=== PATIENT | male | born 1980 | race Two or more races ===

== ENCOUNTER 2018-12-23 04:14 | Emergency (ER) | payer BC, OTHER ==
[2018-12-23 04:23] VITALS: BP 133/94
[2018-12-23] MEDS ORDERED: Prochlorperazine 10 MG/2 ML SDV IVPUSH ONE (04:33)
[2018-12-23] MEDS ORDERED: Ketorolac 30 MG/ML SDV IVPUSH ONE (04:33)
[2018-12-23] MEDS ORDERED: diphenhydrAMINE 50 MG/ML SDV IVPUSH ONE (04:34)
[2018-12-23] MEDS: Sodium Chloride 0.9% 10 ML Syringe FLUSH PRN ×3 (04:41→04:44)
--- NOTE | 2018-12-23 04:44 | EDM.PDOC ---
ED HPI GENERAL MEDICAL PROBLEM - General Chief Complaint: Headache Stated Complaint: HEADACHE/MIGRAINE LEFT SIDE BLURRY VISON Time Seen by Provider: 12/23/18 04:29 Source of Information: Reports: Patient History Limitations: Reports: No Limitations - History of Present Illness INITIAL COMMENTS - FREE TEXT/NARRATIVE: The patient presents with a headache. On Sunday he woke up with a frontal headache. Now the pain is to the left side down his neck. He has no history of migraines and he rarely gets headaches. He has some dizziness at times mostly when he bends over. He has blurry vision to the left visual field at times. He has no fever, chills, cough, congestion, runny nose, nausea or vomiting. He denies numbness or weakness. Onset: Gradual Duration: Day(s): (3) Location: Reports: Head Quality: Reports: Sharp Severity: Severe Improves with: Reports: None Worsens with: Reports: None Associated Symptoms: Reports: Headaches. Denies: Chest Pain, Cough, Fever/ Chills, Nausea/Vomiting, Shortness of Breath Left Head Pain Score (Numeric/FACES): 7 - Related Data Allergies Allergy/AdvReac Type Severity Reaction Status Date / Time No Known Allergies Allergy Verified 12/23/18 04:23 Home Meds: Home Meds . [No Known Home Meds] 12/23/18 [History] Past Medical History Other Musculoskeletal History: "Restless legs" Psychiatric History: Reports: Depression - Past Surgical History HEENT Surgical History: Reports: Tonsillectomy Musculoskeletal Surgical History: Reports: Other (See Below) Other Musculoskeletal Surgeries/Procedures:: ankle surgery Social & Family History - Tobacco Use Smoking Status *Q: Never Smoker - Caffeine Use Caffeine Use: Reports: None - Recreational Drug Use Recreational Drug Use: No ED ROS GENERAL - Review of Systems Review Of Systems: See Below Constitutional: Reports: No Symptoms HEENT: Reports: No Symptoms Respiratory: Reports: No Symptoms Cardiovascular: Reports: No Symptoms Endocrine: Reports: No Symptoms GI/Abdominal: Reports: No Symptoms : Reports: No Symptoms Musculoskeletal: Reports: No Symptoms Neurological: Reports: Dizziness, Headache. Denies: Numbness, Weakness - Physical Exam Exam: See Below Exam Limited By: No Limitations General Appearance: Alert, No Apparent Distress Eye Exam: Bilateral Eye: EOMI Ears: Normal External Exam Nose: Normal Inspection Head Exam: Atraumatic, Normocephalic Neck: Normal Inspection, Supple, Non-Tender Respiratory/Chest: No Respiratory Distress, Lungs Clear, Normal Breath Sounds Cardiovascular: Regular Rate, Rhythm, No Edema, No Murmur GI/Abdominal: Soft, Non-Tender, No Organomegaly, No Mass Neuro Exam (Abbreviated): Alert, Oriented, No Motor/Sensory Deficits Course - Vital Signs Last Recorded V/S: Last Vital Signs Temp 97.6 F 12/23/18 04:19 Pulse 80 12/23/18 04:19 Resp 20 12/23/18 04:19 BP 133/94 H 12/23/18 04:19 Pulse Ox 98 12/23/18 04:19 - Orders/Labs/Meds Orders: Active Orders 24 hr Category Date Time Status Peripheral IV Care [RC] . DIRECTED Care 12/23/18 04:33 Active Head wo Cont [CT] Stat Exams 12/23/18 04:34 Taken Sodium Chloride 0.9% [Saline Flush] Med 12/23/18 04:33 Active 10 ml FLUSH ASDIRECTED PRN Peripheral IV Insertion Adult [OM.PC] Routine Oth 12/23/18 04:33 Ordered Medication Orders Sodium Chloride (Saline Flush) 10 ml FLUSH ASDIRECTED PRN PRN Reason: Keep Vein Open Last Admin: 12/23/18 04:44 Dose: 10 ml Admin: 12/23/18 04:42 Dose: 10 ml Admin: 12/23/18 04:41 Dose: 10 ml Meds: Medications Generic Name Dose Route Start Last Admin Trade Name Freq PRN Reason Stop Dose Admin Sodium Chloride 10 ml 12/23/18 04:33 12/23/18 04:44 Saline Flush FLUSH 10 ml ASDIRECTED PRN Administration Keep Vein Open Discontinued Medications Generic Name Dose Route Start Last Admin Trade Name Freq PRN Reason Stop Dose Admin Diphenhydramine HCl 50 mg 12/23/18 04:34 12/23/18 04:40 Benadryl IVPUSH 12/23/18 04:35 50 mg ONETIME ONE Administration Ketorolac Tromethamine 30 mg 12/23/18 04:33 12/23/18 04:41 Toradol IVPUSH 12/23/18 04:34 30 mg ONETIME ONE Administration Prochlorperazine Edisylate 10 mg 12/23/18 04:33 12/23/18 04:43 Compazine IVPUSH 12/23/18 04:34 10 mg ONETIME ONE Administration - Re-Assessments/Exams Free Text/Narrative Re-Assessment/Exam: 12/23/18 04:[address] of his head, IV saline lock, compazine 10mg IV, toradol 30mg IV and benadryl 50mg IV. 12/23/18 06:[address] looks good. He was able to sleep. He feels better. The headache is not completely gone but much better. He got up to go to the bathroom and he did well. I will discharge him home. Departure - Departure Time of Disposition: 06:25 Disposition: Home, Self-Care 01 Condition: Good Clinical Impression: Headache Qualifiers: Headache type: unspecified Headache chronicity pattern: unspecified pattern Intractability: not intractable Qualified Code(s): R51 - Headache - Discharge Information *PRESCRIPTION DRUG MONITORING PROGRAM REVIEWED*: Not Applicable *COPY OF PRESCRIPTION DRUG MONITORING REPORT IN PATIENT AIYANA: Not Applicable Referrals: PCP,None [Primary Care Provider] - Pari Baldwin PA-C [Physician [employer]otive Engineering Teacher] - Forms: ED Department Discharge, ED Return to Work/School Form Additional Instructions: Take motrin or tylenol for the pain. Go home and get some rest. Please return if you are worse. - My Orders Last 24 Hours: My Active Orders 12/23/18 04:33 Peripheral IV Care [RC] . DIRECTED Sodium Chloride 0.9% [Saline Flush] 10 ml FLUSH ASDIRECTED PRN Peripheral IV Insertion Adult [OM.PC] Routine 12/23/18 04:34 Head wo Cont [CT] Stat - Assessment/Plan Last 24 Hours: My Active Orders 12/23/18 04:33 Peripheral IV Care [RC] . DIRECTED Sodium Chloride 0.9% [Saline Flush] 10 ml FLUSH ASDIRECTED PRN Peripheral IV Insertion Adult [OM.PC] Routine 12/23/18 04:34 Head wo Cont [CT] Stat
--- NOTE | 2018-12-23 07:13 | CT ---
Head CT Technique: Multiple axial sections through the brain were obtained. Intravenous contrast was not utilized. Comparison: No prior intracranial imaging. Findings: Ventricles along with basal cisterns and sulci over the convexities are within normal limits for the patient's age. No abnormal parenchymal densities are seen. No evidence of intracranial hemorrhage. No midline shift or mass effect is seen. Bone window settings were reviewed which show no acute calvarial abnormality. Visualized sinuses are clear. Impression: 1. Nothing acute is seen on noncontrast head CT. Diagnostic code #1 I agree with preliminary report from ad, finalized on 12/23/18, 6:15 AM Central Time
== END 2018-12-23 06:51 | disposition home or self-care (01) ==
LOC: JD.ED 04:14
DX: R51 Headache (principal); Z98.890 Other specified postprocedural states
CPT/HCPCS: 70450; 96374; 96375; 99284; J0780; J1200; J1885

== ENCOUNTER 2023-06-25 05:59 | Emergency (ER) | payer OTHER ==
[2023-06-25] MEDS ORDERED: Sodium Chloride 0.9% 10 ML Syringe FLUSH PRN (06:27)
[2023-06-25] MEDS ORDERED: HYDROmorphone 1 MG/ML Syringe IVPUSH ONE (06:28)
[2023-06-25 06:37] LABS: BASOPHILS PERCENT AUTO 0.4 % (0.0-1.0); EOSINOPHILS ABSOLUTE AUTO 0.2 K/mm3 (0.0-0.4); EOSINOPHILS PERCENT AUTO 1.7 % (0.0-6.0); HEMATOCRIT 43.4 % (42.0-52.0); HEMOGLOBIN 15.1 gm/dl (14.0-18.0); IMMATURE GRAN ABSOLUTE AUTO 0.03 K/mm3 (0.00-0.05); IMMATURE GRAN PERCENT AUTO 0.3 % (0.0-0.4); LYMPHOCYTES ABSOLUTE AUTO 1.6 K/mm3 (1.0-4.8); LYMPHOCYTES PERCENT AUTO 15.5 % (24.0-44.0); MEAN CORPUSCULAR HEMOGLOBIN 30.7 pg (28.0-32.0); MEAN CORPUSCULAR HGB CONC 34.8 g/dl (32.0-36.0); MEAN CORPUSCULAR VOLUME 88.2 fl (83.0-99.0); MEAN PLATELET VOLUME 9.1 fl (9.4-12.4); MONOCYTES PERCENT AUTO 9.7 % (0.0-8.0); NEUTROPHILS ABSOLUTE AUTO 7.3 K/mm3 (1.8-7.7); NEUTROPHILS PERCENT AUTO 72.4 % (41.0-71.0); PLATELET COUNT,PLT 336 K/mm3 (150-400); RED BLOOD CELL COUNT 4.92 M/mm3 (4.52-5.90); WHITE BLOOD CELL COUNT,WBC 10.03 K/mm3 (3.9-11.3)
[2023-06-25] MEDS ORDERED: Iopamidol 755 Mg/ML 100 ML Bottle IVPUSH ONE (06:43)
[2023-06-25] MEDS ORDERED: Sodium Chloride 0.9% 100 ML IV SCH (06:45)
[2023-06-25 06:52] LABS: A/G RATIO 0.9 (1-2); ALANINE AMINOTRANSFERASE,ALT 25 U/L (16-63); ALBUMIN 3.6 g/dl (3.4-5.0); ALKALINE PHOSPHATASE 108 U/L (46-116); ANION GAP 13.6 (5-15); ASPARTATE AMNIOTRANSFERASE,AST 14 U/L (15-37); BILIRUBIN TOTAL 1.1 mg/dL (0.2-1.0); BLOOD UREA NITROGEN,BUN 11 mg/dL (7-18); BUN/CREATININE RATIO 13.8 (14-18); CALCIUM 8.7 mg/dL (8.5-10.1); CARBON DIOXIDE,CO2 25 mEq/L (21-32); CHLORIDE,CL 102 mEq/L (98-107); CREATININE 0.8 mg/dL (0.7-1.3); EST CRCL DRUG DOSING (CG) 117.56 mL/min; ESTIMATED GFR 114 mL/min (>60); GLUCOSE RANDOM 100 mg/dL (70-99); POTASSIUM,K 3.6 mEq/L (3.5-5.1); PROTEIN TOTAL,TP 7.6 g/dl (6.4-8.2); SODIUM,NA 137 mEq/L (136-145)
[2023-06-25 06:54] LABS: TROPONIN I HIGH SENSITIVITY < 4 pg/mL (<=76)
[2023-06-25] MEDS ORDERED: Apixaban 5 MG Tab PO ONE (07:28)
[2023-06-25 08:15] VITALS: BP 118/89; PULSE 85
== END 2023-06-25 07:43 | disposition home or self-care (01) ==
LOC: JD.ED 05:59
DX: I26.99 Other pulmonary embolism without acute cor pulmonale (principal); Z79.01 Long term (current) use of anticoagulants
CPT/HCPCS: 36415; 71275; 80053; 84484; 85025; 85379; 93005; 96374; 99285; A9270; J1170; J3490; Q9967; 93010; 99284

== ENCOUNTER 2023-08-21 12:34 | Emergency (ER) | payer OTHER ==
[2023-08-21] MEDS ORDERED: Sodium Chloride 0.9% 10 ML Syringe FLUSH ONE (13:12)
[2023-08-21] MEDS ORDERED: Iopamidol 755 Mg/ML 100 ML Bottle IVPUSH ONE ×2 (13:12→13:21)
[2023-08-21] MEDS ORDERED: LORazepam 2 MG/ML SDV IVPUSH ONE (13:14)
[2023-08-21] MEDS ORDERED: Sodium Chloride 0.9% 1,000 ML IV SCH (13:15)
[2023-08-21] MEDS ORDERED: Sodium Chloride 0.9% 100 ML IV SCH (13:15)
[2023-08-21] MEDS ORDERED: Sodium Chloride 0.9% 10 ML Syringe FLUSH PRN (13:21)
[2023-08-21] MEDS ORDERED: Sodium Chloride 0.9% 45 ML IV SCH (13:30)
[2023-08-21 14:01] LABS: A/G RATIO 1.2 (1-2); ALANINE AMINOTRANSFERASE,ALT 45 U/L (16-63); ALBUMIN 4.4 g/dl (3.4-5.0); ALKALINE PHOSPHATASE 98 U/L (46-116); ANION GAP 15.4 (5-15); ASPARTATE AMNIOTRANSFERASE,AST 27 U/L (15-37); BLOOD UREA NITROGEN,BUN 10 mg/dL (7-18); BUN/CREATININE RATIO 12.5 (14-18); CALCIUM 9.1 mg/dL (8.5-10.1); CARBON DIOXIDE,CO2 24 mEq/L (21-32); CHLORIDE,CL 103 mEq/L (98-107); CREATININE 0.8 mg/dL (0.7-1.3); EST CRCL DRUG DOSING (CG) 117.56 mL/min; ESTIMATED GFR 114 mL/min (>60); GLUCOSE RANDOM 97 mg/dL (70-99); POTASSIUM,K 3.4 mEq/L (3.5-5.1); PROTEIN TOTAL,TP 8.1 g/dl (6.4-8.2); SODIUM,NA 139 mEq/L (136-145)
[2023-08-21 14:08] LABS: TROPONIN I HIGH SENSITIVITY < 4 pg/mL (<=76)
[2023-08-21 15:34] LABS: BASOPHILS PERCENT AUTO 0.4 % (0.0-1.0); EOSINOPHILS ABSOLUTE AUTO 0.1 K/mm3 (0.0-0.4); EOSINOPHILS PERCENT AUTO 0.6 % (0.0-6.0); HEMATOCRIT 44.3 % (42.0-52.0); HEMOGLOBIN 15.5 gm/dl (14.0-18.0); IMMATURE GRAN ABSOLUTE AUTO 0.01 K/mm3 (0.00-0.05); IMMATURE GRAN PERCENT AUTO 0.1 % (0.0-0.4); LYMPHOCYTES ABSOLUTE AUTO 1.7 K/mm3 (1.0-4.8); LYMPHOCYTES PERCENT AUTO 21.5 % (24.0-44.0); MEAN CORPUSCULAR HEMOGLOBIN 30.6 pg (28.0-32.0); MEAN CORPUSCULAR VOLUME 87.4 fl (83.0-99.0); MEAN PLATELET VOLUME 9.9 fl (9.4-12.4); MONOCYTES ABSOLUTE AUTO 0.6 K/mm3 (0.0-0.8); MONOCYTES PERCENT AUTO 7.7 % (0.0-8.0); NEUTROPHILS ABSOLUTE AUTO 5.6 K/mm3 (1.8-7.7); NEUTROPHILS PERCENT AUTO 69.7 % (41.0-71.0); PLATELET COUNT,PLT 314 K/mm3 (150-400); RED BLOOD CELL COUNT 5.07 M/mm3 (4.52-5.90); WHITE BLOOD CELL COUNT,WBC 8.04 K/mm3 (3.9-11.3)
[2023-08-21 16:41] VITALS: BP 120/94; PULSE 84
== END 2023-08-21 16:39 | disposition home or self-care (01) ==
LOC: JD.ED 12:34
DX: C73 Malignant neoplasm of thyroid gland (principal); F41.9 Anxiety disorder, unspecified; R06.02 Shortness of breath; Z79.01 Long term (current) use of anticoagulants
CPT/HCPCS: 36415; 70491; 71275; 80053; 84484; 85025; 93005; 96374; 99285; J2060; J3490; J7030; Q9967; 93010; 99284

== ENCOUNTER 2025-03-30 19:07 | Emergency (ER) | payer BC, OTHER ==
[2025-03-30] MEDS ORDERED: Sodium Chloride 0.9% 10 ML Syringe FLUSH PRN (19:28)
[2025-03-30 19:38] LABS: BASOPHILS PERCENT AUTO 0.5 % (0.0-1.0); EOSINOPHILS ABSOLUTE AUTO 0.1 K/mm3 (0.0-0.4); EOSINOPHILS PERCENT AUTO 1.7 % (0.0-6.0); HEMOGLOBIN 14.8 gm/dl (14.0-18.0); IMMATURE GRAN ABSOLUTE AUTO 0.02 K/mm3 (0.00-0.05); IMMATURE GRAN PERCENT AUTO 0.3 % (0.0-0.4); LYMPHOCYTES ABSOLUTE AUTO 1.8 K/mm3 (1.0-4.8); LYMPHOCYTES PERCENT AUTO 27.5 % (24.0-44.0); MEAN CORPUSCULAR HEMOGLOBIN 29.8 pg (28.0-32.0); MEAN CORPUSCULAR HGB CONC 33.6 g/dl (32.0-36.0); MEAN CORPUSCULAR VOLUME 88.5 fl (83.0-99.0); MEAN PLATELET VOLUME 9.6 fl (9.4-12.4); MONOCYTES ABSOLUTE AUTO 0.7 K/mm3 (0.0-0.8); MONOCYTES PERCENT AUTO 10.9 % (0.0-8.0); NEUTROPHILS ABSOLUTE AUTO 3.9 K/mm3 (1.8-7.7); NEUTROPHILS PERCENT AUTO 59.1 % (41.0-71.0); PLATELET COUNT,PLT 288 K/mm3 (150-400); RED BLOOD CELL COUNT 4.97 M/mm3 (4.52-5.90); WHITE BLOOD CELL COUNT,WBC 6.59 K/mm3 (3.9-11.3)
[2025-03-30] MEDS: Aspirin 81 MG Tab.Chew PO ONE (19:47)
[2025-03-30] MEDS: Sodium Chloride 0.9% 1,000 ML IV ONE (19:47)
[2025-03-30 19:51] LABS: ALBUMIN 3.9 g/dl (3.4-5.0); ANION GAP 14.2 (5-15); BILIRUBIN TOTAL 0.7 mg/dL (0.2-1.0); BUN/CREATININE RATIO 14.5 (14-18); CALCIUM 8.1 mg/dL (8.5-10.1); CREATININE 1.1 mg/dL (0.7-1.3); EST CRCL DRUG DOSING (CG) 83.77 mL/min; POTASSIUM,K 3.2 mEq/L (3.5-5.1); PROTEIN TOTAL,TP 7.8 g/dl (6.4-8.2)
[2025-03-30] MEDS: Benzonatate 100 MG Cap PO ONE (20:13)
[2025-03-30] MEDS: Potassium Chloride 20 MEQ Tab.ER PO ONE (20:13)
[2025-03-30 23:50] VITALS: BP 125/98; PULSE 72
== END 2025-03-30 23:35 | disposition home or self-care (01) ==
LOC: JD.ED 19:07
DX: R07.81 Pleurodynia (principal); J06.9 Acute upper respiratory infection, unspecified; Z79.01 Long term (current) use of anticoagulants; Z79.899 Other long term (current) drug therapy
CPT/HCPCS: 36415; 71045; 80053; 83690; 83880; 84484; 85025; 85379; 93005; 96360; 96361; 99285; A9270; J7030; 93010; 99284